=== PATIENT | female | born 1980 | race Two or more races ===

== ENCOUNTER 2025-04-27 23:50 | Emergency (ER) | payer OTHER ==
[~2025-04-27] VITALS: Ht 167.6 cm; Wt 57.6 kg
[~2025-04-27 23:50] MED LIST: ADVIL200 MG PO; CLONAZEPAM0.5 MG PO; NON
[2025-04-28] MEDS ORDERED: DEXAMETHASONE SODIUM PHOSPHATE 4 MG/ML VIAL IM ONE (01:15)
[2025-04-28] MEDS ORDERED: KETOROLAC TROMETHAMINE 30 MG VIAL IM ONE (01:15)
[2025-04-28 01:39] LABS: BASO % 0.7 % (0.1-1.2); EOS # 0.13 (0.04-0.54); EOS % 2.3 % (0.7-7.0); LYMPH # 1.57 (1.18-3.74); LYMPH % 28.2 % (19.3-53.1); MEAN PLATELET VOLUME 10.90 fl (9.4-12.4); MONO # 0.48 (0.24-0.82); MONO % 8.6 % (4.7-12.5); NEUT # 3.34 (1.56-6.13); NEUT % 60.0 % (34.0-71.1); RED CELL DISTRIBUTION WIDTH 11.3 % (11.6-14.4)
[2025-04-28 01:59] LABS: BUN CREA RATIO 35.0 (7.0-25.0); CREATININE SERUM 0.6 mg/dL (0.55-1.02); GFR 108.6; GLUCOSE FASTING 109.0 mg/dL (65-100); OSMOLALITY SERUM 294.0 MOSM/KG (275-295)
[2025-04-28 02:47] LABS: URINE APPEARANCE Clear; URINE BACTERIA 86.3 uL (0.0-1933); URINE BILIRRUBIN Negative (NEGATIVE); URINE BLOOD Negative; URINE COLOR Yellow; URINE EPITHELIAL CELLS 28.5 uL (0.0-38.8); URINE GLUCOSE Negative (NEGATIVE); URINE KETONE Negative (NEGATIVE); URINE LEUKOCYTE Negative; URINE NITRATE Negative; URINE PROTEIN Negative (NEGATIVE); URINE RBC 3.3 uL (0.0-20.8); URINE UROBILINOGEN 0.2 E.U./dl; URINE WBC 5.0 uL (0.0-23.2)
[2025-04-28 02:48] LABS: URINE CAST 0.73 uL (0.0-1.40)
[2025-04-28] MEDS ORDERED: KETO10TA2 PO (03:52)
== END 2025-04-28 03:59 ==
LOC: ER 23:51
DX: M62.838 Other muscle spasm (principal); F41.9 Anxiety disorder, unspecified; F41.0 Panic disorder [episodic paroxysmal anxiety]; F43.0 Acute stress reaction